=== PATIENT | male | born 1950 | race Caucasian/White ===

== ENCOUNTER 2019-06-20 19:44 | Emergency (ER) | payer SELFPAY ==
[~2019-06-20] VITALS: Ht 172.7 cm; Wt 72.9 kg
--- NOTE | 2019-06-20 19:45 | NUR ---
TASK RN: KIRILL FORTE FROM LOCAL BAR WHERE PT REPORTEDLY FELL BACKWARDS OFF BAR STOOL +ETOH, "I HAD A LOT, I'M SO DRUNK". PT A&OX4, SPEECH SLURRED. NO LOC, NO MIDLINE NECK OR BACK PAIN UPON PALPATION PT ASSISTED TO USE URINAL UPON ARRIVAL. NOTED TO HAVE BEEN INCONTINENT PRIOR TO ARRIVAL. FALL PRECAUTIONS REVIEWED WITH PT. CALL LIGHT WITHIN REACH, AND DEMONSTRATES UNDERSTANDING. PRIMARY RN, TRINA UPDATED TO PT AND IS ASSUMING PT CARE.
[2019-06-20 19:58] VITALS: BP 147/90
== END 2019-06-20 21:04 | disposition home or self-care (01) ==
LOC: ED 20:45
DX: F10.229 Alcohol dependence with intoxication, unspecified (principal); Z91.81 History of falling; Y90.9 Presence of alcohol in blood, level not specified
CPT/HCPCS: 99283